=== PATIENT | male | born 1975 | race African-American/Black ===

== ENCOUNTER 2023-03-07 11:00 | Emergency (ER) | payer BC ==
[~2023-03-07] VITALS: Ht 188 cm; Wt 139.7 kg
[2023-03-07] MEDS ORDERED: MELOXICAM7.5 MG PO (12:05)
[2023-03-07] MEDS ORDERED: CYCLOBENZAPRINE5 MG PO (12:05)
== END 2023-03-07 12:11 | disposition home or self-care (01) ==
LOC: FSED 11:18
DX: R07.9 Chest pain, unspecified (principal); R94.31 Abnormal electrocardiogram [ECG] [EKG]; F17.210 Nicotine dependence, cigarettes, uncomplicated
CPT/HCPCS: 71045; 80053; 82553; 84484; 85025; 93005; 99284